=== PATIENT | female | born 1955 | race Caucasian/White ===

== ENCOUNTER 2017-06-03 18:32 | Emergency (ER) | payer OTHER ==
[~2017-06-03] VITALS: Ht 162.6 cm; Wt 72.7 kg
[2017-06-03] MEDS ORDERED: SODIUM CHLORIDE 0.9% 1,000 ML IV ONE (18:46)
[2017-06-03] MEDS ORDERED: SODIUM CHLORIDE 0.9% 1,000ML IVBOLUS ONE (19:00)
[2017-06-03] MEDS ORDERED: MORPHINE SULFATE 4 MG/ML, 1ML IVPush PRN (19:00)
[2017-06-03] MEDS ORDERED: ONDANSETRON 2MG/ML, 2ML IVPush ONE ×2 (19:00→19:30)
[2017-06-03 19:12] LABS: HEMATOCRIT 41.2 % (34.6-47.8); HEMOGLOBIN 14.3 g/dL (11.7-16.4); WHITE BLOOD COUNT 8.3 x10^3/uL (3.4-10)
[2017-06-03] MEDS ORDERED: ONDANSETRON 2MG/ML, 2ML ONE (19:21)
[2017-06-03] MEDS ORDERED: HYDROmorphone 1 MG/ML, 1ML ONE ×2 (19:21→20:00)
[2017-06-03 19:22] LABS: BLOOD UREA NITROGEN 11 mg/dL (7-18)
[2017-06-03] MEDS ORDERED: SODIUM CHLORIDE FLUSH 10ML SYR IVF ONE (19:30)
[2017-06-03] MEDS ORDERED: ACETAMINOPHEN 500 MG TABLET ONE (19:36)
[2017-06-03] MEDS: HYDROmorphone 1 MG/ML, 1ML IVPush PRN ×2 (19:40→20:27)
[2017-06-03] MEDS ORDERED: ACETAMINOPHEN 325 MG TABLET PO ONE (20:00)
[2017-06-03] MEDS ORDERED: OMNIPAQUE 350 MG/ML, 100ML BOTTLE ONE (20:27)
[2017-06-03 22:12] VITALS: BP 115/63
== END 2017-06-03 22:13 | disposition home or self-care (01) ==
LOC: ED 21:36
DX: S70.01XA Contusion of right hip, initial encounter (principal); W01.0XXA Fall on same level from slipping, tripping and stumbling without subsequent striking against object, initial encounter; Y93.89 Activity, other specified; Y92.410 Unspecified street and highway as the place of occurrence of the external cause; Y99.8 Other external cause status
CPT/HCPCS: 36415; 72050; 72072; 72100; 73502; 74177; 80048; 80076; 81003; 82040; 83690; 85025; 96374; 96375; 96376; 99285; J1170; J2405; Q9967

== ENCOUNTER 2019-06-22 11:29 | Day surgery (SDC) | payer MEDICARE, OTHER ==
[~2019-06-22] VITALS: Ht 162.6 cm; Wt 69.9 kg
[~2019-06-22 11:29] MED LIST: CEPH-368 PO; CYCL5TAB PO; LISI2.5T PO; MELO7.5T31 PO; OMEP-110 PO; OXYC20TA2 PO; SENN-177 PO; VERA40TA PO
[2019-06-22] MEDS ORDERED: LACTATED RINGERS 1,000 ML IV SCH (12:08)
[2019-06-22] MEDS ORDERED: CALC1CAP8 PO (12:17)
[2019-06-22] MEDS ORDERED: HYOS0.1268 PO (12:17)
[2019-06-22] MEDS ORDERED: FESO8TAB PO (12:17)
[2019-06-22] MEDS ORDERED: OMEP-110 PO (12:17)
[2019-06-22] MEDS ORDERED: BIOT1CAP3 PO (12:17)
[2019-06-22] MEDS ORDERED: DICY10CA3 PO (12:17)
[2019-06-22] MEDS ORDERED: PHEN100T90 PO (12:17)
[2019-06-22] MEDS ORDERED: CEPH-376 PO (12:17)
[2019-06-22] MEDS ORDERED: CHOL100011 PO (12:17)
[2019-06-22 12:22] VITALS: BP 124/87
[2019-06-22] MEDS ORDERED: LIDOCAINE-MPF 1%, 2ML INFIL ONE (12:30)
[2019-06-22] MEDS ORDERED: MIDAZOLAM 1 MG/ML, 2ML ONE (12:54)
[2019-06-22] MEDS ORDERED: FENTANYL PF 100 MCG/2ML ONE (12:54)
[2019-06-22] MEDS ORDERED: PROPOFOL 50 ML ONE (12:55)
[2019-06-22 13:02] LABS: ALANINE AMINOTRANSFERASE 28 U/L (12-78); ALBUMIN 3.2 g/dL (3.4-5.0); ANION GAP 7 mmol/L (5-15); CALCIUM 8.6 mg/dL (8.5-10.1); CHLORIDE 116 mmol/L (98-107); CREATININE 0.69 mg/dL (0.55-1.02)
[2019-06-22 13:04] LABS: ALKALINE PHOSPHATASE 80 U/L (45-117); BILIRUBIN,TOTAL 0.6 mg/dL (0.2-1.0); TOTAL PROTEIN 6.5 g/dL (6.4-8.2)
[2019-06-22] MEDS ORDERED: ONABOTULINUMTOXINA 100 UNITS ONE (13:05)
[2019-06-22] MEDS ORDERED: OXYcodone 5 MG/5 ML ORAL.SOL UDC PO PRN (14:00)
[2019-06-22] MEDS ORDERED: HYDROmorphone 2 MG/ML, 1ML IVPush PRN (14:00)
[2019-06-22] MEDS ORDERED: ONDANSETRON 2MG/ML, 2ML IV PRN (14:00)
[2019-06-22] MEDS ORDERED: hydrALAzine 20 MG/ML, 1ML IV PRN (14:00)
[2019-06-22] MEDS ORDERED: FENTANYL PF 100 MCG/2ML IV PRN (14:00)
== END 2019-06-22 15:05 | disposition home or self-care (01) ==
LOC: OUT 11:29
PROVIDERS: ATTEND Internal Medicine Gastroenterology
DX: R13.10 Dysphagia, unspecified (principal); K22.8 Other specified diseases of esophagus; K29.50 Unspecified chronic gastritis without bleeding; K83.1 Obstruction of bile duct; I10 Essential (primary) hypertension; E78.5 Hyperlipidemia, unspecified; Z72.89 Other problems related to lifestyle; Z79.1 Long term (current) use of non-steroidal anti-inflammatories (NSAID); Z79.899 Other long term (current) drug therapy; Z86.010 Personal history of colon polyps; Z90.49 Acquired absence of other specified parts of digestive tract; Z98.890 Other specified postprocedural states; Z80.0 Family history of malignant neoplasm of digestive organs
CPT/HCPCS: 36415; 43236; 43239; 43249; 43259; 80053; 88305; 93005; C1725; J0585; J2250; J2704; J3010; J7120

== ENCOUNTER 2019-10-07 09:17 | Outpatient (CLI) | payer OTHER ==
[~2019-10-07 09:17] MED LIST changes: +BIOT1CAP3 PO; +CALC1CAP8 PO; +CEPH-376 PO; +CHOL100011 PO; +DICY10CA3 PO; +FESO8TAB PO; +HYOS0.1268 PO; +PHEN100T90 PO
[2019-10-07] MEDS ORDERED: CRAN500T2 PO (09:56)
[2019-10-07 10:38] LABS: ALBUMIN 3.6 g/dL (3.4-5.0); ANION GAP 8 mmol/L (5-15); CALCIUM 8.6 mg/dL (8.5-10.1); CHLORIDE 107 mmol/L (98-107)
[2019-10-07 10:43] LABS: ALANINE AMINOTRANSFERASE 19 U/L (12-78); ALKALINE PHOSPHATASE 89 U/L (45-117); BILIRUBIN,TOTAL 0.5 mg/dL (0.2-1.0); CREATININE 0.81 mg/dL (0.55-1.02); TOTAL PROTEIN 7.3 g/dL (6.4-8.2)
== END 2019-10-07 23:59 | disposition home or self-care (01) ==
LOC: STAR 09:17
PROVIDERS: ATTEND Obstetrics & Gynecology
DX: Z01.818 Encounter for other preprocedural examination (principal); N95.0 Postmenopausal bleeding
CPT/HCPCS: 36415; 80053; 93005

== ENCOUNTER 2020-12-12 08:00 | Outpatient (CLI) | payer MEDICARE ==
[~2020-12-12 08:00] MED LIST changes: +CRAN500T3 PO; +LISI-167 PO
[2020-12-12] MEDS ORDERED: CALC500T14 PO (08:41)
[2020-12-12] MEDS ORDERED: LIDO700A20 TD (08:41)
[2020-12-12] MEDS ORDERED: OMEP40CA8 PO (08:41)
[2020-12-12] MEDS ORDERED: DULO20CA45 PO (08:41)
[2020-12-12] MEDS ORDERED: ACET-1600 PO (08:41)
[2020-12-12] MEDS ORDERED: IBUP-1222 PO (08:41)
[2020-12-12] MEDS ORDERED: LISI-170 PO (08:41)
[2020-12-12 09:54] LABS: BASOPHILS % (AUTO) 1 % (0-1); EOSINOPHILS % (AUTO) 4 % (1-7); LYMPHOCYTES % (AUTO) 45 % (22-44); MEAN CORPUSCULAR HEMOGLOBIN 33.8 pg (27.0-34.8); MEAN CORPUSCULAR HGB CONC 33.6 g/dL (32.4-35.8); MEAN PLATELET VOLUME 9.2 fL (7.4-10.4); MONOCYTES % (AUTO) 8 % (2-9); NEUTROPHILS % (AUTO) 43 % (42-75); PLATELET COUNT 185 x10^3/uL (130-400); RED BLOOD COUNT 4.11 x10^6/uL (3.82-5.3); RED CELL DISTRIBUTION WIDTH 13.2 % (9.6-15.2)
[2020-12-12 10:03] LABS: ALANINE AMINOTRANSFERASE 21 U/L (12-78); ALBUMIN 3.8 g/dL (3.4-5.0); ANION GAP 5 mmol/L (5-15); CALCIUM 9.3 mg/dL (8.5-10.1); CHLORIDE 110 mmol/L (98-107); CREATININE 0.72 mg/dL (0.55-1.02)
[2020-12-12 10:06] LABS: ALKALINE PHOSPHATASE 101 U/L (45-117); BILIRUBIN,TOTAL 0.6 mg/dL (0.2-1.0); TOTAL PROTEIN 7.6 g/dL (6.4-8.2)
[2020-12-12 10:07] LABS: INTERNATIONAL NORMALIZED RATIO 0.93 (0.93-1.1); PROTHROMBIN TIME 9.8 Seconds (9.6-11.5)
[2020-12-12 12:58] LABS: HCT (SEDRATE) 41.3 % (34.6-47.8)
[2020-12-14] MEDS ORDERED: OXYC5CAP2 PO (12:15)
== END 2020-12-12 23:59 | disposition home or self-care (01) ==
LOC: STAR 08:00
PROVIDERS: ATTEND Orthopaedic Surgery Orthopaedic Surgery of the Spine
DX: Z01.818 Encounter for other preprocedural examination (principal); M54.2 Cervicalgia; R94.31 Abnormal electrocardiogram [ECG] [EKG]; I51.7 Cardiomegaly; Z20.822 Contact with and (suspected) exposure to COVID-19
CPT/HCPCS: 36415; 71046; 80053; 83036; 85025; 85610; 85651; 85730; 93005; U0003; U0005